=== PATIENT | female | born 1995 | race Caucasian/White ===

== ENCOUNTER 2018-07-21 15:10 | Emergency (ER) | payer OTHER ==
[2018-07-21 15:14] VITALS: BP 115/81; PULSE 82; TEMP 98.1; BMI 26.9
[2018-07-21] MEDS ORDERED: SODIUM CHLORIDE 1,000 ML IV STA (15:50)
[2018-07-21] MEDS ORDERED: KETOROLAC TROMETHAMINE 15 MG/ML VIAL IVPUSH ONE (15:50)
--- NOTE | 2018-07-21 16:09 | PDOC ---
History of Present Illness - General Chief Complaint: Pain Stated Complaint: ORAL PAIN, SORE THROAT Time Seen by Provider: 07/21/18 15:12 History Source: Patient Exam Limitations: No Limitations - History of Present Illness Initial Comments: 07/21/18 15:59 22 year old female with no past medical history presents with two complaints. 1. Sore throat since yesterday. Noted to gradually develop sore throat worse with swallowing. Denies sick contacts or recent travels. Denies fevers, chills. States felt like "white plaques" and pain on side of mouth. No discharges. 2. Complains of suprapubic pain and dysuria x 3 weeks. Pt was 3 weeks ago and currently sexually active. States that she's been urinating after sex. Noted intermittent suprapubic pain occasionally radiating to lower back. No nausea or vomiting. no diarrhea. Pt does not use condoms. Denies oral sex. Denies vaginal discharge or vaginal bleeding. LMP June 30. For these two complaints, came into the ER for further evaluation. Past History - Past Medical History Allergies/Adverse Reactions: Allergies Allergy/AdvReac Type Severity Reaction Status Date / Time No Known Allergies Allergy Verified 07/21/18 15:10 Home Medications: Ambulatory Orders Cephalexin [Keflex] 500 mg PO BID #10 capsule 07/21/18 Naproxen 500 mg PO BID PRN #14 tablet 07/21/18 Nystatin Oral Suspension - [Nystatin Oral Susp 571614 Units/5 ML -] 500,000 units PO Q6H #28 cup 07/21/18 COPD: No Other medical history: DENIES - Suicide/Smoking/Psychosocial Hx Smoking History: Never smoked Have you smoked in the past 12 months: No Information on smoking cessation initiated: No Hx Alcohol Use: No Drug/Substance Use Hx: No Review of Systems - Review of Systems Able to Perform ROS?: Yes Comments:: 07/21/18 16:18 GENERAL/CONSTITUTIONAL: No fever or chills. No weakness. HEAD, EYES, EARS, NOSE AND THROAT: No change in vision. No ear pain or discharge. + sore throat. CARDIOVASCULAR: No chest pain or shortness of breath. RESPIRATORY: No cough, wheezing, or hemoptysis. GASTROINTESTINAL: No nausea, vomiting, diarrhea or constipation. +lower abdominal pain. GENITOURINARY: + dysuria, frequency, or change in urination. MUSCULOSKELETAL: No joint or muscle swelling or pain. No neck or back pain. SKIN: No rash NEUROLOGIC: No headache, vertigo, loss of consciousness, or change in strength/ sensation. ENDOCRINE: No increased thirst. No abnormal weight change. HEMATOLOGIC/LYMPHATIC: No anemia, easy bleeding, or history of blood clots. ALLERGIC/IMMUNOLOGIC: No hives or skin allergy. *Physical Exam - Vital Signs Last Vital Signs Temp Pulse Resp BP Pulse Ox 98.1 F 82 18 115/81 99 07/21/18 15:10 07/21/18 15:10 07/21/18 15:10 07/21/18 15:10 07/21/18 15:10 - Physical Exam Comments: 07/21/18 16:20 GENERAL: Awake, alert, and fully oriented, in no acute distress HEAD: No signs of trauma EYES: EOMI, sclera anicteric, conjunctiva clear ENT: Auricles normal inspection, hearing grossly normal, nares patent, oropharynx without exudates, ?small vesicles on sides of cheeks, ?whitish plaque on tongue, ?thrush? No evidence of STORY EDITOR or purulence.. Moist mucosa NECK: Normal ROM, supple, LUNGS: Breath sounds equal, clear to auscultation bilaterally. No wheezes, and no crackles HEART: Regular rate and rhythm, normal S1 and S2, no murmurs, rubs or gallops ABDOMEN: Soft, nontender. No guarding, no rebound. No masses. +suprapubic tenderness. No CVA tenderness. EXTREMITIES: Normal range of motion, no edema. No clubbing or cyanosis. No cords, erythema, or tenderness NEUROLOGICAL: Cranial nerves II through XII grossly intact. Normal speech, normal gait SKIN: Warm, Dry, normal turgor, no rashes or lesions noted. ED Treatment Course - LABORATORY CBC & Chemistry Diagram: 07/21/18 16:07 07/21/18 16:07 Medical Decision Making - Medical Decision Making 07/21/18 16:26 Vital Signs Temp Pulse Resp BP Pulse Ox 98.1 F 82 18 115/81 99 07/21/18 15:10 07/21/18 15:10 07/21/18 15:10 07/21/18 15:10 07/21/18 15:10 1. Sore throat. Will treat as thrush for the moment. Differential is also coxsackie (with some small vesicles) and leukoplakia. Unclear what the etiology is. Magic Mouth Wash. Will perform throat culture and swab. Will check a CBC for abnormalities. Will advise patient that she will need further workup as an outpatient. 2. Suprapubic pain and dysuria. I suspect that the patient has cystitis. Pt is s /p appendectomy. Labs, UA/UC, urine test and reassess. 07/21/18 16:56 CBC, BMP 07/21/18 16:07 07/21/18 16:07 CMP Sodium 133 mmol/L (136-145) L 07/21/18 16:07 Potassium 4.2 mmol/L (3.5-5.1) 07/21/18 16:07 Chloride 101 mmol/L (98-107) 07/21/18 16:07 Carbon Dioxide 26 mmol/L (22-28) 07/21/18 16:07 Anion Gap 6 MMOL/L (8-16) L 07/21/18 16:07 BUN 13 mg/dl (7-18) 07/21/18 16:07 Creatinine 0.7 mg/dl (0.6-1.3) 07/21/18 16:07 Creat Clearance w eGFR > 60 (>60) 07/21/18 16:07 Random Glucose 81 mg/dl (74-106) 07/21/18 16:07 Calcium 9.0 mg/dl (8.4-10.2) 07/21/18 16:07 Total Bilirubin 0.9 mg/dl (0.2-1.0) 07/21/18 16:07 AST 34 U/L (10-42) 07/21/18 16:07 ALT 39 U/L (10-40) 07/21/18 16:07 Alkaline Phosphatase 57 U/L (32-92) 07/21/18 16:07 Total Protein 7.0 g/dl (6.4-8.3) 07/21/18 16:07 Albumin 3.9 g/dl (3.5-5.0) 07/21/18 16:07 Urine Test Results Urine Color Yellow 07/21/18 16:07 Urine Appearance Clear 07/21/18 16:07 Urine pH 6.0 (4.5-8) 07/21/18 16:07 Ur Specific [place] 1.025 (1.005-1.025) 07/21/18 16:07 Urine Protein Negative (NEGATIVE) 07/21/18 16:07 Urine Glucose (UA) Negative (NEGATIVE) 07/21/18 16:07 Urine Ketones Negative (NEGATIVE) 07/21/18 16:07 Urine Blood Negative (NEGATIVE) 07/21/18 16:07 Urine Nitrite Negative (NEGATIVE) 07/21/18 16:07 Urine Bilirubin Negative (NEGATIVE) 07/21/18 16:07 Ur Leukocyte Esterase Negative (NEGATIVE) 07/21/18 16:07 Urine test negative. Rapid strep test negative. 07/21/18 17:01 Given that she is feeling dysuria and suprapubic pain, will still treat as cystitis despite negative UA. Will give keflex 500 mg BID x 5 days. Also, will treat with nystatin magic mouthwash. I strongly advise that she follows up with a doctor in 1 week to verify progress. Pt states she prefers to establish primary care physician here at [facility]. Will give her referral. Pt verbalizes understanding and agrees with plan. *DC/Admit/Observation/Transfer Diagnosis at time of Disposition: Cystitis, Sore throat - Discharge Dispostion Disposition: HOME Condition at time of disposition: Stable Decision to Admit order: No - Prescriptions Prescriptions: Cephalexin [Keflex] 500 mg PO BID #10 capsule Naproxen 500 mg PO BID PRN #14 tablet PRN Reason: Pain Nystatin Oral Suspension - [Nystatin Oral Susp 028664 Units/5 ML -] 500,000 units PO Q6H #28 cup - Referrals Referrals: Cesar Moralez MD [Staff Physician] - - Patient Instructions Printed Discharge Instructions: DI for Acute Cystitis Additional Instructions: You have been worked up for your sore throat and urinary symptoms. Even though the urine results does not show any obvious findings, you are showing physical signs of an urine infection. We have your urine culture and will see if we can observe any bacteria in it. It may take 2 to 3 more days to evaluate for infection. In the meantime, please take 500 mg keflex every 12 hours for 5 days for the urine. For your throat, you have a negative strep test. However, we have a throat culture that will take a day or two before the results return. There is some "white" material on your tongue that could be a small fungal infection. Please use the mouthwash as prescribed. By next week, if you do not notice any changes or the symptoms worsen, please call your doctor or return to the ER. - Post Discharge Activity
[2018-07-21 16:27] LABS: URINE APPEARANCE CLEAR; URINE BILIRUBIN NEGATIVE (NEGATIVE); URINE COLOR YELLOW; URINE GLUCOSE (UA) NEGATIVE (NEGATIVE); URINE KETONE NEGATIVE (NEGATIVE)
[2018-07-21 16:28] LABS: URINE LEUK ESTERASE NEGATIVE (NEGATIVE); URINE NITRITE NEGATIVE (NEGATIVE); URINE PROTEIN NEGATIVE (NEGATIVE); URINE UROBILINOGEN 0.2 (0.2-1.0)
[2018-07-21 16:31] LABS: HCG,QUALITATIVE URINE Negative
[2018-07-21 16:33] LABS: BASO % 0.5 % (0-2.0); EOS % 2.9 % (0-4.5); HEMATOCRIT 37.3 % (32.4-45.2); HEMOGLOBIN 12.3 GM/dl (10.7-15.3); LYMPH % 24.8 % (8-40); MCH 28.1 pg (25.7-33.7); MEAN CELL VOLUME 85.4 fl (80-96); MEAN PLT VOLUME 10.4 fl (7.5-11.1); MONO % 7.4 % (3.8-10.2); NEUT % 64.4 % (42.8-82.8); PLATELET COUNT 208 K/MM3 (134-434); RBC 4.37 M/mm3 (3.60-5.2); RDW 13.7 % (11.6-15.6); WHITE BLOOD COUNT 8.3 K/mm3 (4.0-10.8)
[2018-07-21] MEDS ORDERED: KETOROLAC TROMETHAMINE 15 MG/ML VIAL ONE (16:36)
[2018-07-21 16:53] LABS: ALBUMIN 3.9 g/dl (3.5-5.0); ALK PHOS 57 U/L (32-92); ANION GAP 6 MMOL/L (8-16); BILIRUBIN,TOTAL 0.9 mg/dl (0.2-1.0); BLOOD UREA NITROGEN 13 mg/dl (7-18); CHLORIDE 101 mmol/L (98-107); CO2 26 mmol/L (22-28); CREATININE 0.7 mg/dl (0.6-1.3); GLUCOSE,RANDOM 81 mg/dl (74-106); POTASSIUM 4.2 mmol/L (3.5-5.1); SGOT/AST 34 U/L (10-42); SGPT/ALT 39 U/L (10-40); SODIUM 133 mmol/L (136-145)
[2018-07-21] MEDS ORDERED: CEPHALEXIN MONOHYDRATE 500 MG CAPSULE (UD) PO ONE (17:00)
[2018-07-21] MEDS ORDERED: CEPHALEXIN MONOHYDRATE 500 MG CAPSULE (UD) ONE (17:09)
== END 2018-07-21 17:20 | disposition home or self-care (01) ==
LOC: FER 15:10
PROC: 3E0333Z Introduction of Anti-inflammatory into Peripheral Vein, Percutaneous Approach (ICD-10-PCS; principal; 2018-07-21)
PROC: 3E0337Z Introduction of Electrolytic and Water Balance Substance into Peripheral Vein, Percutaneous Approach (ICD-10-PCS; 2018-07-21)
DX: N30.90 Cystitis, unspecified without hematuria (principal); J02.9 Acute pharyngitis, unspecified
CPT/HCPCS: 36415; 80053; 81003; 84703; 85025; 87070; 87086; 87430; 99285-25; J7030

== ENCOUNTER 2019-08-06 14:55 | Emergency (ER) | payer OTHER ==
[2019-08-06 15:08] VITALS: BP 100/65; PULSE 83; TEMP 97.9; BMI 25.7
--- NOTE | 2019-08-06 15:15 | PDOC ---
Documentation entered by Geri Lopez SCRIBE, acting as scribe for Lucy Birch MD. Lucy Birch MD: This documentation has been prepared by the samibJohn negrete Lincy, SCRIBE, under my direction and personally reviewed by me in its entirety. I confirm that the documentation accurately reflects all work, treatment, procedures, and medical decision making performed by me. History of Present Illness - General Chief Complaint: Nausea/Vomiting Stated Complaint: NAUSEA, VOMITING Time Seen by Provider: 08/06/19 14:59 History Source: Patient Exam Limitations: No Limitations - History of Present Illness Initial Comments: 08/06/19 15:22 The patient is a 23-year-old female with no reported past medical history who presents to the emergency department with nausea, vomiting, diarrhea, and dizziness. The patient presents with a 2-day history of nausea, x3 episode of vomiting (2 episode yesterday and 1 episode today morning), and diarrhea. Denies abdominal pain, but the patient reports she feels stomach sickness. The patient reports today she felt lightheaded. The patient states shes able to tolerate water but unable to tolerate solids. Denies fever, chills. Denies recent abx use, travel, or known sick contact. LMP: July 06 ended. Allergies: NKDA Surgical history: Appendectomy (age 9) Past History - Past Medical History Allergies/Adverse Reactions: Allergies Allergy/AdvReac Type Severity Reaction Status Date / Time No Known Allergies Allergy Verified 07/21/18 15:10 Home Medications: Ambulatory Orders NK [No Known Home Medication] 08/06/19 COPD: No - Psycho Social/Smoking Cessation Hx Smoking History: Never smoked Have you smoked in the past 12 months: No Hx Alcohol Use: No Drug/Substance Use Hx: No Review of Systems - Review of Systems Able to Perform ROS?: Yes Comments:: 08/06/19 15:22 GENERAL/CONSTITUTIONAL: No fever or chills. No weakness. HEAD, EYES, EARS, NOSE AND THROAT: No change in vision. No ear pain or discharge. No sore throat. CARDIOVASCULAR: No chest pain or shortness of breath. RESPIRATORY: No cough, wheezing, or hemoptysis. GASTROINTESTINAL: +nausea, vomiting, and diarrhea. No constipation. GENITOURINARY: No dysuria, frequency, or change in urination. MUSCULOSKELETAL: No joint or muscle swelling or pain. No neck or back pain. SKIN: No rash NEUROLOGIC: +dizziness. No headache, vertigo, loss of consciousness, or change in strength/sensation. ENDOCRINE: No increased thirst. No abnormal weight change. HEMATOLOGIC/LYMPHATIC: No anemia, easy bleeding, or history of blood clots. ALLERGIC/IMMUNOLOGIC: No hives or skin allergy. *Physical Exam - Vital Signs Last Vital Signs Temp Pulse Resp BP Pulse Ox 97.9 F 83 18 100/65 99 08/06/19 14:55 08/06/19 14:55 08/06/19 14:55 08/06/19 14:55 08/06/19 14:55 - Physical Exam Comments: 08/06/19 15:14 awake alert lungs clear bilat heart rrr no mrg abd soft nt nd ext wwp . skin warm and dry. ED Treatment Course - LABORATORY CBC & Chemistry Diagram: 08/06/19 15:30 08/06/19 15:30 Medical Decision Making - Medical Decision Making 08/06/19 15:14 23 yo F with no pmhx here with n/v/d started yesterday. threw up fw times, once this am. has tolerated po since. loose watery stools. no travel. no abx. prior apendectomy. abd nontender. plan labs ivf antiemetics ua ucg. reassess. 08/06/19 15:52 pt test is positive. informed her states her last period was 06/29. likely only 2 - 3 weeks pregnany. no current abd pain or bleeding. given referral for Ob/ legal financial specialist told to return for any pain, bleeding or any concerns. 08/06/19 16:56 labs otherise unremarkable. ua conaminate 5 - 10 wbc, epithelial cells. will dc home fu global engineering manager given referral. Discharge - Discharge Information Problems reviewed: Yes Clinical Impression/Diagnosis: Condition: Improved Disposition: HOME - Admission No - Follow up/Referral Referrals: Angel Brasher MD [Staff Physician] - - Patient Discharge Instructions Patient Printed Discharge Instructions: Managing Symptoms of Additional Instructions: you should take vitamin if you are not already. follow up with a electronic equipment trades worker. call to schedule if you do not have one you can follow up wtih Dr Brasher. see referral information and call to schedule. return for any pain, bleeding or any concerns . - Post Discharge Activity
[2019-08-06] MEDS ORDERED: SODIUM CHLORIDE 0.9% 1000 ML INFUS.BAG IV ONE (15:23)
[2019-08-06] MEDS ORDERED: ONDANSETRON 4 MG/2 ML VIAL IVPUSH ONE (15:23)
[2019-08-06] MEDS ORDERED: ONDANSETRON 4 MG/2 ML VIAL ONE (15:25)
[2019-08-06 15:42] LABS: BASO % 0.5 % (0-2.0); EOS % 0.6 % (0-4.5); HEMATOCRIT 36.2 % (32.4-45.2); HEMOGLOBIN 11.8 GM/dl (10.7-15.3); LYMPH % 25.7 % (8-40); MCH 26.9 pg (25.7-33.7); MCHC 32.7 g/dl (32.0-36.0); MEAN CELL VOLUME 82.2 fl (80-96); MEAN PLT VOLUME 9.3 fl (7.5-11.1); MONO % 8.5 % (3.8-10.2); NEUT % 64.7 % (42.8-82.8); PLATELET COUNT 219 K/MM3 (134-434); RDW 13.8 % (11.6-15.6); WHITE BLOOD COUNT 7.3 K/mm3 (4.0-10.8)
[2019-08-06 15:56] LABS: ALBUMIN 3.9 g/dl (3.4-5.0); BILIRUBIN,TOTAL 0.7 mg/dl (0.2-1); CALCIUM 8.9 mg/dl (8.5-10); CREATININE 0.7 mg/dl (0.55-1.3); POTASSIUM 3.9 mmol/L (3.5-5.1)
[2019-08-06 16:03] LABS: EPITHELIAL CELLS FEW /hpf
== END 2019-08-06 17:05 | disposition home or self-care (01) ==
LOC: FER 14:55
PROC: 3E033GC Introduction of Other Therapeutic Substance into Peripheral Vein, Percutaneous Approach (ICD-10-PCS; principal; 2019-08-06)
PROC: 3E0337Z Introduction of Electrolytic and Water Balance Substance into Peripheral Vein, Percutaneous Approach (ICD-10-PCS; 2019-08-06)
DX: Z33.1 Pregnant state, incidental (principal)
CPT/HCPCS: 36415; 80053; 81003; 81015; 83690; 84703; 85025; 99284-25; J7030

== ENCOUNTER 2019-11-18 14:10 | Emergency (ER) | payer OTHER ==
[2019-11-18 14:15] VITALS: BMI 27.6
[2019-11-18] MEDS ORDERED: LACTATED RINGERS SOLUTION 1,000 ML IV STA (14:49)
[2019-11-18] MEDS ORDERED: ACETAMINOPHEN 325 MG TABLET (FP) PO ONE (14:49)
[2019-11-18] MEDS ORDERED: METOCLOPRAMIDE HCL INJECTION 10 MG/2 ML VIAL IVPB ONE (14:51)
[2019-11-18] MEDS ORDERED: FAMOTIDINE 20 MG/50 ML IVPB 20 MG/50 ML MG IVPB ONE ×2 (14:52→14:58)
[2019-11-18] MEDS ORDERED: METOCLOPRAMIDE HCL INJECTION 10 MG/2 ML VIAL ONE (14:58)
[2019-11-18] MEDS ORDERED: ACETAMINOPHEN 325 MG TABLET (FP) ONE (14:58)
[2019-11-18 15:22] LABS: BASO % 0.2 % (0-2.0); EOS % 0.2 % (0-4.5); HEMATOCRIT 31.1 % (32.4-45.2); HEMOGLOBIN 10.3 GM/dL (10.7-15.3); MCHC 33.1 g/dl (32.0-36.0); MEAN CELL VOLUME 84.5 fl (80-96); MEAN PLT VOLUME 9.4 fl (7.5-11.1); MONO % 4.9 % (3.8-10.2); NEUT % 76.7 % (42.8-82.8); PLATELET COUNT 203 K/MM3 (134-434); RBC 3.69 M/mm3 (3.60-5.2); RDW 15.4 % (11.6-15.6); WHITE BLOOD COUNT 9.3 K/mm3 (4.0-10.0)
--- NOTE | 2019-11-18 16:04 | PDOC ---
History of Present Illness - General History Source: Patient, Family Exam Limitations: No Limitations - History of Present Illness Initial Comments: 11/18/19 16:00 Patient is a 24-year-old female who is with a 19-week twin gestation who presents to the ED with complaint of abdominal pain, nausea and vomiting. She states this has been ongoing for the last 1 week. She spoke with her pack out operator who made her aware that this is likely round ligament pain. The patient currently sees a local pack out operator but is in the process of being transferred to [facility] secondary to being twin gestation. She denies any vaginal bleeding. She has been taking Tylenol for pain. She states she has vomited one time today one time yesterday. She does admit to having hyperemesis gravidarum in the early part of her . <Edna Paz - Last Filed: 11/18/19 17:50> <Lupe Deluca - Last Filed: 11/18/19 22:38> - General Chief Complaint: Pain, Acute Stated Complaint: ABD PAIN/ 19 WKS PRGE Time Seen by Provider: 11/18/19 14:29 Past History - Past Medical History COPD: No - Reproductive History Is Patient Now?: Yes (#): 1 Para: 0 Cervical CA: No Dysfunctional Uterine Bleeding: No Ectopic : No Endometrial CA: No Polycystic Ovaries: No Therapeutic (s) & number: No - Immunization History Immunization Up to Date: No - Psycho Social/Smoking Cessation Hx Smoking History: Never smoked Have you smoked in the past 12 months: No Information on smoking cessation initiated: No Hx Alcohol Use: No Drug/Substance Use Hx: No <Edna Paz - Last Filed: 11/18/19 17:50> <Lupe Deluca - Last Filed: 11/18/19 22:38> - Past Medical History Allergies/Adverse Reactions: Allergies Allergy/AdvReac Type Severity Reaction Status Date / Time No Known Allergies Allergy Verified 07/21/18 15:10 Home Medications: Ambulatory Orders Cephalexin [Keflex] 250 mg PO QID 7 Days #28 capsule 11/18/19 Review of Systems - Review of Systems Comments:: 11/18/19 16:01 - Review of Systems Able to Perform ROS?: Yes Constitutional: No: Fever, Chills, Loss of Appetite, Night Sweats, Weakness HEENTM: No: Eye Pain, Vision changes, Ear Pain, Throat Pain, Throat Swelling, Mouth Pain, Difficulty Swallowing Respiratory: No: Cough, Shortness of Breath, Wheezing, Sputum Production Cardiac (ROS): No: Chest Pain, Chest Tightness, Palpitations, Irregular Heart Beat, Edema ABD/GI: No: Diarrhea; Positive: Nausea, Vomiting, Abdominal Pain : No Dysuria, No Hematuria, No Frequency, No Urgency, No Vaginal Discharge/ Pain, No vaginal bleeding Musculoskeletal: No: Muscle Pain, Back Pain, Joint Pain, Muscle Weakness, Neck Pain Integumentary: No: Lesions, Rash Neurological: No: Headache, Numbness, Tingling, Weakness, Speech Difficulties <Edna Paz - Last Filed: 11/18/19 17:50> *Physical Exam - Vital Signs Last Vital Signs Temp Pulse Resp BP Pulse Ox 97.8 F 89 18 100/53 L 95 11/18/19 14:12 11/18/19 14:12 11/18/19 14:12 11/18/19 14:12 11/18/19 14:12 - Physical Exam 11/18/19 16:02 - Physical Exam General Appearance: Nourished, Appropriately Dressed, No Distress HEENT: EOMI, Normal Voice, No Nasal Congestion, No Rhinorrhea, Hearing Grossly Normal, No Muffled/Hoarse voice Neck: Supple, No Decreased range of motion Respiratory/Chest: Lungs Clear, Normal Breath Sounds. No Respiratory Distress, No Accessory Muscle Use Cardiovascular: Regular Rhythm, Regular Rate, S1, S2 Gastrointestinal/Abdominal: Normal Bowel Sounds, Soft. No Guarding, No Rebound, No Rigidity; Diffuse abdominal tenderness to palpation, uterus measures about 3 fingerbreaths above the umbilicus Musculoskeletal: Normal Inspection. No Decreased Range of Motion Extremity: Normal Capillary Refill, Normal Inspection Integumentary: Normal Color, Dry. No Rash Neurologic: flight data technician II-XII NML intact, Fully Oriented, Alert, Normal Mood/Affect, Normal Response <Edna Paz - Last Filed: 11/18/19 17:50> - Vital Signs Last Vital Signs Temp Pulse Resp BP Pulse Ox 98.4 F 84 18 98/56 L 98 11/18/19 17:35 11/18/19 17:35 11/18/19 17:35 11/18/19 17:35 11/18/19 17:35 <Lupe Deluca - Last Filed: 11/18/19 22:38> ED Treatment Course - LABORATORY CBC & Chemistry Diagram: 11/18/19 15:00 11/18/19 15:00 - ADDITIONAL ORDERS Additional order review: Laboratory Results 11/18/19 15:00 Urine HCG, Qual Positive 11/18/19 15:00 RBC 3.69 MCV 84.5 MCHC 33.1 RDW 15.4 MPV 9.4 Neutrophils % 76.7 Lymphocytes % 18.0 Monocytes % 4.9 Eosinophils % 0.2 Basophils % 0.2 11/18/19 17:51 Laboratory Tests 11/18/19 11/18/19 11/18/19 15:00 15:00 15:00 WBC 9.3 RBC 3.69 Hgb 10.3 L Hct 31.1 L MCV 84.5 MCH 28.0 MCHC 33.1 RDW 15.4 Plt Count 203 MPV 9.4 Absolute Neuts (auto) 7.1 Neutrophils % 76.7 Lymphocytes % 18.0 Monocytes % 4.9 Eosinophils % 0.2 Basophils % 0.2 Nucleated RBC % 0 Sodium Potassium Chloride Carbon Dioxide Anion Gap BUN Creatinine Est GFR (CKD-EPI)AfAm Est GFR (CKD-EPI)NonAf Random Glucose Calcium Total Bilirubin AST ALT Alkaline Phosphatase Total Protein Albumin Urine Color Yellow Urine Appearance Clear Urine pH 6.5 Ur Specific [place] 1.013 Urine Protein Negative Urine Glucose (UA) Negative Urine Ketones Negative Urine Blood Negative Urine Nitrite Negative Urine Bilirubin Negative Urine Urobilinogen 0.2 Ur Leukocyte Esterase 3+ H Urine WBC (Auto) 39 Urine RBC (Auto) 1 Urine Casts (Auto) 7 U Epithel Cells (Auto) 1.9 Urine Bacteria (Auto) 267.7 Urine HCG, Qual Positive 11/18/19 15:00 WBC RBC Hgb Hct MCV MCH MCHC RDW Plt Count MPV Absolute Neuts (auto) Neutrophils % Lymphocytes % Monocytes % Eosinophils % Basophils % Nucleated RBC % Sodium 138 Potassium 3.6 Chloride 107 Carbon Dioxide 22 Anion Gap 10 BUN 7.2 Creatinine 0.6 Est GFR (CKD-EPI)AfAm 148.90 Est GFR (CKD-EPI)NonAf 128.48 Random Glucose 88 Calcium 8.5 Total Bilirubin 0.1 L AST 17 ALT 23 Alkaline Phosphatase 65 Total Protein 6.4 Albumin 2.9 L Urine Color Urine Appearance Urine pH Ur Specific [place] Urine Protein Urine Glucose (UA) Urine Ketones Urine Blood Urine Nitrite Urine Bilirubin Urine Urobilinogen Ur Leukocyte Esterase Urine WBC (Auto) Urine RBC (Auto) Urine Casts (Auto) U Epithel Cells (Auto) Urine Bacteria (Auto) Urine HCG, Qual - RADIOLOGY Radiology Studies Ordered: Category Date Time Status MULTIPLE PREG US(TWINS) [US] Stat Ultrasound 11/18/19 14:50 Ordered - Medications Given in the ED: ED Medications Discontinued Medications Generic Name Dose Route Start Last Admin Trade Name Freq PRN Reason Stop Dose Admin Acetaminophen 975 mg 11/18/19 14:49 11/18/19 15:11 Tylenol - PO 11/18/19 14:50 975 mg ONCE ONE Administration Lactated Ringer's 1,000 mls @ 1,000 mls/hr 11/18/19 14:49 11/18/19 15:11 Lactated Ringers Solution IV 11/18/19 15:48 1,000 mls/hr ONCE STA Administration Famotidine/Sodium Chloride 20 mg in 50 mls @ 100 mls/hr 11/18/19 14:52 15:11 Pepcid 20 Mg Premixed Ivpb - IVPB 11/18/19 15:21 100 mls/hr ONCE ONE Administration Metoclopramide HCl 10 mg 11/18/19 14:51 11/18/19 15:11 Reglan Injection - IVPB 11/18/19 14:52 10 mg ONCE ONE Administration <Edna Paz D - Last Filed: 11/18/19 17:50> - LABORATORY CBC & Chemistry Diagram: 11/18/19 15:00 11/18/19 15:00 - ADDITIONAL ORDERS Additional order review: Laboratory Results 11/18/19 11/18/19 11/18/19 15:00 15:00 15:00 Sodium 138 Potassium 3.6 Chloride 107 Carbon Dioxide 22 Anion Gap 10 BUN 7.2 Creatinine 0.6 Est GFR (CKD-EPI)AfAm 148.90 Est GFR (CKD-EPI)NonAf 128.48 Random Glucose 88 Calcium 8.5 Total Bilirubin 0.1 L AST 17 ALT 23 Alkaline Phosphatase 65 Total Protein 6.4 Albumin 2.9 L Urine Color Yellow Urine Appearance Clear Urine pH 6.5 Ur Specific [place] 1.013 Urine Protein Negative Urine Glucose (UA) Negative Urine Ketones Negative Urine Blood Negative Urine Nitrite Negative Urine Bilirubin Negative Urine Urobilinogen 0.2 Ur Leukocyte Esterase 3+ H Urine WBC (Auto) 39 Urine RBC (Auto) 1 Urine Casts (Auto) 7 U Epithel Cells (Auto) 1.9 Urine Bacteria (Auto) 267.7 Urine HCG, Qual Blood Type A NEGATIVE Antibody Screen Negative 11/18/19 15:00 Sodium Potassium Chloride Carbon Dioxide Anion Gap BUN Creatinine Est GFR (CKD-EPI)AfAm Est GFR (CKD-EPI)NonAf Random Glucose Calcium Total Bilirubin AST ALT Alkaline Phosphatase Total Protein Albumin Urine Color Urine Appearance Urine pH Ur Specific [place] Urine Protein Urine Glucose (UA) Urine Ketones Urine Blood Urine Nitrite Urine Bilirubin Urine Urobilinogen Ur Leukocyte Esterase Urine WBC (Auto) Urine RBC (Auto) Urine Casts (Auto) U Epithel Cells (Auto) Urine Bacteria (Auto) Urine HCG, Qual Positive Blood Type Antibody Screen 11/18/19 15:00 RBC 3.69 MCV 84.5 MCHC 33.1 RDW 15.4 MPV 9.4 Neutrophils % 76.7 Lymphocytes % 18.0 Monocytes % 4.9 Eosinophils % 0.2 Basophils % 0.2 - Medications Given in the ED: ED Medications Discontinued Medications Generic Name Dose Route Start Last Admin Trade Name Darrelq PRN Reason Stop Dose Admin Acetaminophen 975 mg 11/18/19 14:49 11/18/19 15:11 Tylenol - PO 11/18/19 14:50 975 mg ONCE ONE Administration Cephalexin HCl 250 mg 11/18/19 17:52 11/18/19 18:30 Keflex - PO 11/18/19 17:53 250 mg ONCE ONE Administration Lactated Ringer's 1,000 mls @ 1,000 mls/hr 11/18/19 14:49 11/18/19 15:11 Lactated Ringers Solution IV 11/18/19 15:48 1,000 mls/hr ONCE STA Administration Famotidine/Sodium Chloride 20 mg in 50 mls @ 100 mls/hr 11/18/19 14:52 15:11 Pepcid 20 Mg Premixed Ivpb - IVPB 11/18/19 15:21 100 mls/hr ONCE ONE Administration Metoclopramide HCl 10 mg 11/18/19 14:51 11/18/19 15:11 Reglan Injection - IVPB 11/18/19 14:52 10 mg ONCE ONE Administration <Lupe Deluca - Last Filed: 11/18/19 22:38> Medical Decision Making - Medical Decision Making 11/18/19 17:10 Pt is feeling much better and has tolerated both food and fluids in the ED. She states that her pain is much better. She is pending her CMP and then we will reassess. 11/18/19 17:51 Patient feeling very well. She will be treated for urinary tract infection with Keflex. She will follow-up with her pack out operator this week and she states she has an appointment at [facility] on Wednesday. She understands and agrees with this treatment plan and the patient is stable for discharge. <Edna Paz - Last Filed: 11/18/19 17:50> - Medical Decision Making I reviewed the case with the mid-level practitioner and agree with the mid- level practitioner's assessment, diagnosis and disposition. <Lupe Deluca - Last Filed: 11/18/19 22:38> Discharge - Discharge Information Problems reviewed: Yes <Edna Paz - Last Filed: 11/18/19 17:50> <Lupe Deluca - Last Filed: 11/18/19 22:38> - Discharge Information Clinical Impression/Diagnosis: Abdominal pain during in second trimester Urinary tract infection Qualifiers: Urinary tract infection type: acute cystitis Hematuria presence: without hematuria Qualified Code(s): N30.00 - Acute cystitis without hematuria Condition: Stable Disposition: HOME - Additional Discharge Information Prescriptions: Cephalexin [Keflex] 250 mg PO QID 7 Days #28 capsule - Follow up/Referral Referrals: Iman Tapia MD [Primary Care Provider] - - Patient Discharge Instructions Patient Printed Discharge Instructions: DI for Urinary Tract Infection (UTI), DI for Abdominal Pain -- Early Additional Instructions: Drink plenty of fluids and take the antibiotics as prescribed and complete the entire course. Be sure to follow-up with your DIAMOND SORTER this week for repeat evaluation. Return to the emergency department for severe pain, vaginal bleeding or any other worsening symptoms. - Post Discharge Activity
[2019-11-18 16:16] LABS: EPI CELLS 1.9 /HPF (0-5/HPF); HYALINE CASTS 7 /lpf (0-8); PH,URINE 6.5 (5.0-8.0); URINE APPEARANCE CLEAR; URINE BACTERIA 267.7 /hpf (NEGATIVE); URINE BILIRUBIN NEGATIVE (NEGATIVE); URINE COLOR YELLOW; URINE GLUCOSE (UA) NEGATIVE (NEGATIVE); URINE KETONE NEGATIVE (NEGATIVE); URINE LEUK ESTERASE 3+ (NEGATIVE); URINE NITRITE NEGATIVE (NEGATIVE); URINE PROTEIN NEGATIVE (NEGATIVE); URINE RBC 1 /hpf (0-4); URINE UROBILINOGEN 0.2 mg/dL (0.2-1.0); URINE WBC 39 /hpf (0-5)
[2019-11-18 17:36] VITALS: BP 98/56; PULSE 84; TEMP 98.4
[2019-11-18 17:42] LABS: ALBUMIN 2.9 g/dl (3.4-5.0); BILIRUBIN,TOTAL 0.1 mg/dL (0.2-1); BLOOD UREA NITROGEN 7.2 mg/dL (7-18); CALCIUM 8.5 mg/dL (8.5-10.1); CREATININE 0.6 mg/dL (0.55-1.3); POTASSIUM 3.6 mmol/L (3.5-5.1); TOT PROT 6.4 g/dl (6.4-8.2)
[2019-11-18] MEDS ORDERED: CEPHALEXIN MONOHYDRATE 250 MG CAPSULE (FP) PO ONE (17:52)
[2019-11-18] MEDS ORDERED: CEPHALEXIN MONOHYDRATE 250 MG CAPSULE (FP) ONE (18:29)
== END 2019-11-18 18:33 | disposition home or self-care (01) ==
LOC: JER 14:10
PROC: 3E033GC Introduction of Other Therapeutic Substance into Peripheral Vein, Percutaneous Approach (ICD-10-PCS; principal; 2019-11-18)
PROC: 3E0337Z Introduction of Electrolytic and Water Balance Substance into Peripheral Vein, Percutaneous Approach (ICD-10-PCS; 2019-11-18)
PROC: 3E033GC Introduction of Other Therapeutic Substance into Peripheral Vein, Percutaneous Approach (ICD-10-PCS; 2019-11-18)
DX: O26.892 Other specified pregnancy related conditions, second trimester (principal); O23.42 Unspecified infection of urinary tract in pregnancy, second trimester; Z3A.19 19 weeks gestation of pregnancy
CPT/HCPCS: 36415; 76810-TC; 80053; 81003; 84703; 85025; 86850; 86900; 86901; 87086; 96361; 96365; 96375; 99282-25

== ENCOUNTER 2021-03-08 04:26 | Emergency (ER) | payer OTHER ==
[2021-03-08 04:36] VITALS: BP 111/63; PULSE 82; TEMP 97.7; BMI 27.2
== END 2021-03-08 05:19 | disposition home or self-care (01) ==
LOC: FER 04:26
DX: S90.32XA Contusion of left foot, initial encounter (principal)
CPT/HCPCS: 73630-TC-LT; 99283-25

== ENCOUNTER 2023-03-06 23:57 | Emergency (ER) | payer OTHER ==
[2023-03-07] MEDS ORDERED: SODIUM CHLORIDE 1,000 ML IV ONE (00:22)
[2023-03-07] MEDS ORDERED: ONDANSETRON 4 MG/2 ML VIAL IVPB ONE (00:22)
[2023-03-07] MEDS ORDERED: ONDANSETRON 4 MG/2 ML VIAL ONE (00:29)
[2023-03-07 00:36] VITALS: RESP 16; TEMP 98.2; BMI 28.5
[2023-03-07 02:22] VITALS: BP 109/71; PULSE 98
[2023-03-07 04:14] LABS: BLOOD UREA NITROGEN 14.1 mg/dL (7-18); CHLORIDE 105 mmol/L (98-107); CREATININE 0.7 mg/dL (0.55-1.3); GLUCOSE,RANDOM 81 mg/dL (74-106); POTASSIUM 4.6 mmol/L (3.5-5.1); SODIUM 137 mmol/L (136-145)
[2023-03-07 04:15] LABS: ALBUMIN 3.8 g/dl (3.4-5.0); BILIRUBIN,TOTAL 0.5 mg/dL (0.2-1); CALCIUM 8.8 mg/dL (8.5-10.1); CO2 27 mmol/L (21-32); SGOT/AST 37 U/L (15-37); TOT PROT 7.8 g/dl (6.4-8.2)
[2023-03-07 04:16] LABS: ALK PHOS 96 U/L (45-117); SGPT/ALT 34 U/L (13-61)
== END 2023-03-07 02:30 | disposition home or self-care (01) ==
LOC: FER 23:57
PROC: 3E033GC Introduction of Other Therapeutic Substance into Peripheral Vein, Percutaneous Approach (ICD-10-PCS; principal; 2023-03-07)
PROC: 3E0337Z Introduction of Electrolytic and Water Balance Substance into Peripheral Vein, Percutaneous Approach (ICD-10-PCS; 2023-03-07)
DX: R11.10 Vomiting, unspecified (principal)
CPT/HCPCS: 36415; 80053; 81025; 99284-25